=== PATIENT | male | born 2005 | race Caucasian/White ===

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

== ENCOUNTER 2025-01-19 13:42 | Emergency (ER) | payer BC, SELFPAY ==
[2025-01-19] VITALS (15 sets, daily range): BP systolic 127–150; BP diastolic 63–91; PULSE 55–87; RESP 9–24; TEMP 36.8; O2SAT 98–100
--- NOTE | 2025-01-19 13:30 | RT.EKG_ITS ---
APPROVED REPORT Exam: Resting ECG Reason for Exam: palpitations Patient Location: E HR:87 bpm ECG Measurements Heart Rate 87 AXIS PA 140 P 68 QRSd 115 QRS 78 QT 345 T 51 QTc 416 Conclusion Sinus arrhythmia...V-rate 66-112, variation>10% Incomplete right bundle branch block...QRSd >112, terminal axis(90,270) No STEMI
--- NOTE | 2025-01-19 13:56 | W.ED.GENAD ---
Discharge Plan Disposition Patient Disposition: Home Condition: Stable Discharge Details Clinical Impression: Palpitations Primary Care Provider: Arya Suresh ED Provider: Nitin Fish Home Meds and New Rx's Prescriptions: Continued cetirizine [All Day Allergy (cetirizine)] 10 mg tablet 10 mg PO DAILY Qty: 90 4RF Rx Instructions: Take 1 tab daily fluticasone propion-salmeterol [Advair Diskus] 250-50 mcg/dose blister with device 1 inh IH BID Qty: 60 4RF Rx Instructions: Take 1 inhalation twice a day albuterol sulfate 90 mcg/actuation HFA aerosol inhaler 2 puff Inhalation Q4H PRN Qty: 24 1RF Rx Instructions: Use as directed prn cough/wheeze. dispense 3 inhalers please thanks montelukast 10 mg tablet See Rx Instructions .ROUTE .COMPLEX Qty: 90 4RF Dose Instruction: TAKE ONE TABLET BY MOUTH EVERY DAY Rx Instructions: TAKE ONE TABLET BY MOUTH EVERY DAY Discharge Instructions Instructions: Palpitations ED Additional Instructions: You were seen in the emergency department for your palpitations, your cardiac enzymes are normal, EKG shows no concerning arrhythmias, your electrolytes are normal and your chest x-ray is normal. I am placing you on the outpatient follow-up list for cardiology for possible evaluation and rhythm monitor, please return to the ER for any emergent concerns like worsening chest pain, near fainting, shortness of breath. Referrals: Marielena Vaughan MD [ [facility] STAFF PHYSICIAN, Cardiology] Arya Suresh, [employer] [Primary Care Provider, Pediatrics Medical] Discharge Data Discharge Date/Time-TO BE ENTERED AT DEPARTURE: 01/19/25 15:36 HPI General Date/Time Provider Initiated Documentation: 01/19/25 13:49. HPI Narrative: 19 year-old male presents to ED today by POV/ambulating with his mother with a chief complaint of palpitations, feelings of a racing heart, with throat and chest tightness with onset off and on since Monday. Quality described as just tightness, not overt chest pain, no radiation to shortness of breath, diaphoresis, cough, nausea/vomiting, dizziness, endorses frequent palpitations. Severity is described as mild to moderate. Palliating factors include nothing specific attempted. Provoking factors include no exertional onset. Events leading up to the incident/Associated Symptoms: Patient and Mom deny known family history of early cardiac problems. Patient not anticoagulated. Related Data Home Medications Medication Instructions Recorded Confirmed cetirizine 10 mg tablet (All Day 10 mg PO DAILY #90 tabs 04/08/20 01/19/25 Allergy (cetirizine)) albuterol sulfate 90 mcg/actuation 2 puff inhalation Q4H PRN #24 grams 05/29/24 01/19/25 aerosol inhaler fluticasone 250 mcg-salmeterol 50 1 inh inhalation BID #60 ea 05/29/24 01/19/25 mcg/dose blistr powdr for inhalation (Advair Diskus) montelukast 10 mg tablet See Rx Instructions .Route 01/09/25 01/19/25 .COMPLEX #90 tabs Previous Rx's Medication Instructions Recorded cetirizine 10 mg tablet (All Day 10 mg PO DAILY #90 tabs 04/08/20 Allergy (cetirizine)) albuterol sulfate 90 mcg/actuation 2 puff inhalation Q4H PRN #24 grams 05/29/24 aerosol inhaler fluticasone 250 mcg-salmeterol 50 1 inh inhalation BID #60 ea 05/29/24 mcg/dose blistr powdr for inhalation (Advair Diskus) montelukast 10 mg tablet See Rx Instructions .Route 01/09/25 .COMPLEX #90 tabs Allergies Allergy/AdvReac Type Severity Reaction Status Date / Time No Known Drug Allergies Allergy Other (See Verified 01/19/25 13:48 Comment) DUST MITES Allergy Mild SNEEZING Uncoded 01/19/25 13:48 birch trees AdvReac Mild Other (See Uncoded 01/19/25 13:48 Comment) cats/dogs AdvReac Mild Other (See Uncoded 01/19/25 13:48 Comment) environmental AdvReac Mild Other (See Uncoded 01/19/25 13:48 Comment) General Stated Complaint: Palpitatns HARVINDER: 3 Review of Systems All systems reviewed & are unremarkable except as noted in HPI and below Exam Narrative Exam Narrative: GENERAL APPEARANCE: Well-nourished, non-toxic, awake and alert, atraumatic, no acute distress. SKIN: Warm, pink, dry, intact, without rashes/lesions/ulcerations. HEAD: Normocephalic, atraumatic, normal hair distribution for gender/age. EYES: Normal conjunctiva, no exudates on lids/lashes. ENT: Nares patent, no circumoral cyanosis, no facial swelling NECK: Supple, trachea midline, painless cervical ROM. LUNGS/CHEST: Lungs CTA bilaterally-no rhonchi/rales/wheeze diffusely, non-labored respirations, normal A/P diameter, symmetrical expansion, no chest wall deformity HEART (CV/PV): Regular rate and rhythm without murmur, no peripheral edema, no JVD. ABDOMEN: Soft, non-distended, no guarding, no tenderness. MSK: Normal ROM, no swelling/deformity to bilateral UEs or LEs, moving all extremities without weakness, no cyanosis, spine midline without tenderness, normal curvature. NEURO: Mental Status AAOx4 - alert to person, place, time, events No facial droop, no forehead involvement. Motor: No focal weakness - strength 5/5 in bilateral UEs and LEs, proximal and distal, symmetric. Sensory: sensation intact to light touch globally. Gait normal: patient ambulated without ataxia into ED room. PSYCH: euthymic, cooperative, pleasant, appropriate speech Course Vital Signs Vital signs: Vital Signs Temperature 36.8 C 01/19/25 13:46 Pulse 87 01/19/25 13:46 Respiratory Rate 14 01/19/25 13:46 Blood Pressure 149/90 H 01/19/25 13:46 Pulse Oximetry 98 01/19/25 13:46 Temperature 36.8 C 01/19/25 13:46 Temperature Source Oral 01/19/25 13:46 Pulse 87 01/19/25 13:46 Respiratory Rate 14 01/19/25 13:46 Blood Pressure 149/90 H 01/19/25 13:46 Blood Pressure Position Sitting 01/19/25 13:46 Pulse Oximetry 98 01/19/25 13:46 Oxygen Delivery Method Room Air 01/19/25 13:46 Oxygen Flow Rate 0 01/19/25 13:46 Medical Decision Making This dictation utilizes [id number] dictation software and may contain unedited grammatical errors. 19 year-old male presents to ED today by POV/ambulating with his mother with a chief complaint of palpitations, feelings of a racing heart, with throat and chest tightness with onset off and on since Monday. Quality described as just tightness, not overt chest pain, no radiation to shortness of breath, diaphoresis, cough, nausea/vomiting, dizziness, endorses frequent palpitations. Severity is described as mild to moderate. Palliating factors include nothing specific attempted. Provoking factors include no exertional onset. Events leading up to the incident/Associated Symptoms: Patient and Mom deny known family history of early cardiac problems. Patients' medical history: Asthma. Family and social history: Denies EtOH or drug use or smoking. Pertinent exam findings / vital signs include heart rate regular, no murmur on auscultation, lungs CTA, benign abdomen, stable vitals, nontoxic, neuro intact, afebrile. Differential / pathologies of concern include palpitations, ACS, pneumonia less likely, electrolyte abnormality, thyroid problem. Diagnostic studies of: - CBC, CMP, magnesium, troponin, TSH, x-ray chest, EKG. - CBC shows no leukocytosis, no left shift and no other abnormality - CMP is completely unremarkable - Magnesium within normal limits - Troponin negative - TSH within normal limits - X-ray without acute abnormality - EKG shows sinus arrhythmia 87 bpm with P waves followed by narrow complex QRS with normal axis, increased amplitude in the septal leads but he is tall and thin in stature, no ST depressions or reciprocal elevations, normal QTc Interventions of: - None, monitored via environmental monitoring technician throughout visit his heart rate is well-controlled in the 50s and 60s did not see any significant PVCs or pauses or PACs. ED Course/Assessment/Plan: 19-year-old male has on and off palpitations since Monday, denies anxiety history, has no family history of early cardiac disease, cardiac workup is negative, electrolytes within normal limits, counseled on the need to follow-up with cardiology and placed him on the follow-up list, strict return criteria for any worsening palpitations, unstable tachycardia, dizziness, sweating, chest pain, shortness of breath. Findings not consistent with complete heart block, new onset left bundle branch block, dangerous arrhythmia, ACS. Disposition of palpitations. Patient verbalized understanding of the plan and return to ED criteria and engaged in shared decision making. Medical Records Medical records reviewed: Yes I reviewed the patient's medical records. Imaging Data Radiologic Study: Attestation: I personally reviewed and interpreted this imaging study as follows: Imaging: X-Ray Radiologist's impression: EXAM: XR CHEST 2V PA LATERAL CLINICAL HISTORY: chest tightness. TECHNIQUE: 2D digital imaging was performed. COMPARISON: No exams were available for comparison FINDINGS: 2 views: Heart size is normal. The mediastinum is not widened. Lungs are clear. No infiltrates nor pleural effusions. IMPRESSION: No acute pulmonary findings. Lab Data Lab results reviewed: Yes I reviewed the patient's lab results. Labs: Laboratory Tests Range/Units 01/19/25 14:00 WBC (4.4-10.8) 10^3/uL 8.09 RBC (4.36-5.78) 10^6/uL 5.07 Hgb (13.5-17.5) g/dL 15.6 Hct (40.0-50.0) % 45.4 MCV (80-95) fL 90 MCH (27.0-33.0) pg 30.8 MCHC (32.0-36.0) % 34.4 RDW (11.8-14.1) % 11.2 L Plt Count (130-400) 10^3/uL 241 MPV (8.0-11.0) fL 9.3 Immature Gran % % 0.4 Neutrophils % % 71.2 Lymphocytes % % 20.9 Monocytes % % 5.8 Eosinophils % % 1.0 Basophils % % 0.7 Nucleated RBC % (0.0-0.3) % 0.0 Absolute Neutrophils (1.2-6.7) 10^3/uL 5.76 Absolute Lymphocytes (1.2-3.4) 10^3/uL 1.69 Absolute Monocytes (0.1-0.8) 10^3/uL 0.47 Absolute Eosinophils (0.0-0.7) 10^3/uL 0.08 Absolute Basophils (0.0-0.2) 10^3/uL 0.06 Sodium (136-145) mmol/L 141 Potassium (3.5-5.1) mmol/L 3.5 Chloride (98-107) mmol/L 102 Carbon Dioxide (21.0-32.0) mmol/L 26.2 Anion Gap (3-11) mmol/L 12.8 H BUN (7-18) mg/dL 13 Creatinine (0.70-1.30) mg/dL 1.0 Est GFR (CKD-EPI 2020) (mL/min/1.73m2) 110.50 Glucose (74-106) mg/dL 92 Calcium (8.5-10.1) mg/dL 9.8 Magnesium (1.8-2.4) mg/dL 1.8 Total Bilirubin (0.2-1.0) mg/dL 0.8 AST (15-37) U/L 20 ALT (16-63) U/L 34 Alkaline Phosphatase (46-116) U/L 78 Troponin I (<or=76) ng/L < 4 Total Protein (6.4-8.2) g/dL 8.2 Albumin (3.4-5.0) g/dL 4.9 TSH (0.36-3.74) uIU/mL 2.80 PFSH All Active Problems (Updated 01/19/25 @ 15:16 by EMELYN Ruiz) Palpitations (Acute) Seasonal and perennial allergic rhinitis (Chronic) Moderate persistent asthma without complication (Chronic 11/30/16) Medical History Nasal polyp Resolution with use of Flonase and oral non-sedating anti-histamine daily; Follow up with ENT prn Buckle fracture of distal end of right radius (03/28/19) Fracture of wrist, closed R Surgical History History of circumcision Family History Mother Depression with anxiety Healthy adult on routine physical examination Father Depression with anxiety Substance abuse Brother No problems noted. Grandparent Depression with anxiety Substance abuse PGF, MGM, MGF Diabetes PGF, PGM Essential hypertension MGM Hyperlipidemia MGM Social History (Updated 05/29/24 @ 13:02 by Chelsey Moss RN) Smoking/Tobacco Use Status: Current every day Tobacco Type: e-cigarettes Second Hand Exposure: Yes (Outside house only) Smoking risk assessment performed?: Yes Alcohol Intake: current Alcohol Intake frequency: a few times a week Alcohol type: beer Drug use: Daily Substance use type: marijuana Adopted: No Caregiver/Support person: No Foster care: No Household members: family Housing: house Number of Children: 0 number of grandchildren: 0 Communication Needs: None Pets and animals: Yes (4 cats and a dog) Pets and animals: cat(s) and dog(s) Current gender identity: male Do you feel safe at home: Yes Do you feel safe in your relationship?: Yes
--- NOTE | 2025-01-19 14:15 | DI.RAD_ITS ---
Exam(s) XR CHEST 2V PA LATERAL EXAM: XR CHEST 2V PA LATERAL CLINICAL HISTORY: chest tightness. TECHNIQUE: 2D digital imaging was performed. COMPARISON: No exams were available for comparison FINDINGS: 2 views: Heart size is normal. The mediastinum is not widened. Lungs are clear. No infiltrates nor pleural effusions. IMPRESSION: No acute pulmonary findings. DATA REPOSITORY: RADIATION DOSE DELIVERED:
[2025-01-19 14:35] LABS: Abs Immature Grans 0.03 10^3/uL (0.0-0.06); HCT 45.4 % (40.0-50.0); HGB 15.6 g/dL (13.5-17.5); Immature Grans % 0.4 %; MCH 30.8 pg (27.0-33.0); MCHC 34.4 % (32.0-36.0); MCV 90 fL (80-95); MPV 9.3 fL (8.0-11.0); Platelet Count 241 10^3/uL (130-400); RBC 5.07 10^6/uL (4.36-5.78); RDW 11.2 % (11.8-14.1); RDW-SD 36.8 fL; WBC 8.09 10^3/uL (4.4-10.8)
[2025-01-19 14:58] LABS: ALT 34 U/L (16-63); AST 20 U/L (15-37); Albumin 4.9 g/dL (3.4-5.0); Alkaline Phosphatase 78 U/L (46-116); Anion Gap 12.8 mmol/L (3-11); BUN 13 mg/dL (7-18); Bilirubin, Total 0.8 mg/dL (0.2-1.0); CO2 26.2 mmol/L (21.0-32.0); Calcium 9.8 mg/dL (8.5-10.1); Chloride 102 mmol/L (98-107); Glucose 92 mg/dL (74-106); Magnesium 1.8 mg/dL (1.8-2.4); Potassium 3.5 mmol/L (3.5-5.1); Sodium 141 mmol/L (136-145); TSH (W/Ref FT4) 2.80 uIU/mL (0.36-3.74); Total Protein 8.2 g/dL (6.4-8.2)
[2025-01-19 14:59] LABS: Troponin I < 4 ng/L (<or=76)
[2025-01-21 10:51] LABS: Lyme Ab w Rflx to Lyme Confirm Negative (Negative)
[2025-01-22 21:19] LABS: B. miyamotoi PCR Negative (Negative); Babesia divergens/MO-1 Negative (Negative); Ehrlichia muris eauclairensis Negative (Negative)
== END 2025-01-19 15:36 | disposition home or self-care (01) ==
PROVIDERS: Emergency Provider Physician Assistant; PCP Nurse Practitioner Pediatrics
DX: R00.2 Palpitations (principal)
CPT/HCPCS: 99283; 99284; 36415; 80053; 87798; 93005; 71046; 83735; 84443; 84484; 85025; 86618; 93010

== ENCOUNTER 2025-01-23 10:57 | Outpatient (CLI) | payer BC, SELFPAY | END 2025-01-23 10:58 | disposition home or self-care (01) | PROVIDERS: PCP Nurse Practitioner Pediatrics; Visit Provider Nurse Practitioner Family | DX: R00.2 Palpitations (principal) | CPT/HCPCS: 93246 ==

== ENCOUNTER 2025-02-18 07:22 | Outpatient (CLI) | payer BC, SELFPAY ==
--- NOTE | 2025-02-18 10:03 | W.CARDEVENT ---
Date of service: 02/18/25 Time of Service: 10:03 Cardiac Event Recorder Referring Provider:: Shantelle Farfan Indications:: Palpitations Cardiac Event Note: This is a cardiac event monitor. Patient was monitored for 9 days and 23 hours Rhythm throughout was sinus with an average heart rate of 77. Minimum was 39, maximum 181 There were 3 premature ventricular contractions There were very very rare isolated atrial premature beats There was no atrial fibrillation, no high-grade AV block, no SVT, no pauses greater than 3 seconds. No symptoms were reported
== END 2025-02-18 07:23 | disposition home or self-care (01) ==
LOC: CARDOPNVT 07:22
PROVIDERS: PCP Nurse Practitioner Pediatrics; Visit Provider Internal Medicine Cardiovascular Disease
DX: R00.2 Palpitations (principal); I49.3 Ventricular premature depolarization